=== PATIENT | male | born 1975 | race Caucasian/White ===

== ENCOUNTER 2017-10-31 06:34 | Emergency (ER) | payer OTHER, SELFPAY ==
--- NOTE | 2017-10-31 06:34 | DT_ITS ---
This patient was seen during an EMR downtime October 31, 2017 - November 07, 2017. This patient may have a combination of paper and electronic documentation or all paper documentation. All documentation is viewable within the e-chart portion of [employer] for each patient visit.
== END 2017-10-31 07:03 | disposition home or self-care (01) ==
LOC: ED 11-02 11:04
PROVIDERS: Emergency Provider Emergency Medicine; Family Provider Family Medicine; PCP Family Medicine
DX: N45.1 Epididymitis (principal); E66.9 Obesity, unspecified; Z72.0 Tobacco use
CPT/HCPCS: 99282

== ENCOUNTER → 2019-07-25 10:06 | Outpatient (CLI) | payer OTHER, SELFPAY ==
[2019-01-20 14:08] VITALS: BMI 45.8
--- NOTE | 2019-07-25 10:15 | RAD_ITS ---
STUDY: X-RAY CHEST REASON FOR EXAM: Male, 44 years old. chest pressure, tightness for almost a week TECHNIQUE: PA and lateral views of the chest. COMPARISON: Prior study of July 05, 2016 FINDINGS: The lungs are clear and expanded. There is no demonstrated pleural abnormality. Normal size heart. Normal mediastinum and art. Normal visualized pulmonary arteries. Normal visualized aortic arch and descending thoracic aorta. Normal visualized thoracic spine. Normal visualized ribs, clavicles, and shoulders. There is no demonstrated abnormality of the visualized soft tissue structures of the upper abdomen. RAD/Chest PA and Lateral IMPRESSION: Normal x-ray examination of the chest. There has been interval resolution of left basilar atelectasis seen on the previous study. Electronically Signed: Srinivasa Sinclair MD at 17:06 EST , Service support ,
== END ==
PROVIDERS: PCP Family Medicine; Referring Provider Family Medicine; Visit Provider Family Medicine
DX: R05 Cough (principal)
CPT/HCPCS: 71046

== ENCOUNTER → 2020-03-28 | Outpatient (CLI) | payer OTHER, SELFPAY ==
[2019-01-20 14:08] VITALS: BMI 45.8
== END | disposition home or self-care (01) ==
PROVIDERS: PCP Family Medicine; Referring Provider Family Medicine; Visit Provider Family Medicine
DX: Z20.828 Contact with and (suspected) exposure to other viral communicable diseases (principal)
CPT/HCPCS: 87635; U0003

== ENCOUNTER → 2020-04-03 14:44 | Outpatient (CLI) | payer OTHER, SELFPAY ==
[2019-01-20 14:08] VITALS: BMI 45.8
--- NOTE | 2020-04-03 15:09 | RAD_ITS ---
STUDY: X-RAY CHEST REASON FOR EXAM: Male, 44 years old. RECENT DIAGNOSIS OF PNEUMONIA PER PATIENT. NOT GETTING ANY BETTER. SOB AND COUGH. TECHNIQUE: PA and lateral views of the chest. COMPARISON: Comparison is made with prior study dated 07/25/2019. FINDINGS: The lungs are clear and expanded. There is no demonstrated pleural abnormality. Normal size heart. Normal mediastinum and art. Normal visualized pulmonary arteries. Normal visualized aortic arch and descending thoracic aorta. Normal visualized thoracic spine. Normal visualized ribs, clavicles, and shoulders. There is no demonstrated abnormality of the visualized soft tissue structures of the upper abdomen. RAD/Chest PA and Lateral IMPRESSION: Normal x-ray examination of the chest. Electronically Signed: Scot Santiago, at 15:33 EST , Service support ,
== END ==
PROVIDERS: PCP Family Medicine; Referring Provider Family Medicine; Visit Provider Family Medicine
DX: R06.02 Shortness of breath (principal)
CPT/HCPCS: 71046

== ENCOUNTER → 2020-05-01 16:25 | Outpatient (CLI) | payer OTHER, SELFPAY ==
[2019-01-20 14:08] VITALS: BMI 45.8
== END ==
PROVIDERS: PCP Family Medicine; Referring Provider Family Medicine; Visit Provider Family Medicine
DX: U07.1 COVID-19 (principal)
CPT/HCPCS: 87635; U0003

== ENCOUNTER 2020-05-06 23:32 | Inpatient (IN) | payer OTHER, SELFPAY ==
[2019-01-20 14:08] VITALS: BMI 45.8
[2020-05-06 23:33] VITALS: BP 117/81; PULSE 128; RESP 20; TEMP 37.2; O2SAT 96; BMI 45.8
--- NOTE | 2020-05-06 23:58 | EKG12_ITS ---
Test Reason : DYSRHYTHMIA Blood Pressure : / mmHG Vent. Rate : 112 BPM Atrial Rate : 112 BPM P-R Int : 152 ms QRS Dur : 098 ms QT Int : 338 ms P-R-T Axes : 048 031 031 degrees QTc Int : 461 ms Sinus tachycardia Otherwise normal ECG Confirmed by NAYELI DE LA TORRE, GARY ([id number]), editor producer FITO SANCHEZ ([id number]) on 05/09/2020 8:52:40 A M Referred By: XENIA Confirmed By:JEANIE TYLER MD
--- NOTE | 2020-05-06 23:59 | ED.DCSUM_ITS ---
History of Present Illness Chief Complaint: Shortness of Breath Informant: Patient Narrative: Stated he has been having shortness of breath since yesterday. Worse this evening. Was just noticed that he is dyspneic. He was diagnosed with coronavirus 5 days ago and started having symptoms 7 days ago. Patient stated his coronavirus symptoms have been headache and intermittent fevers weakness muscle aches nausea vomiting and diarrhea. Denies any chronic lung problems. No other pulmonary embolism risk factors. Denies any cardiac problems. Denies any chest pain. He has never had this before. He has not smoked cigarettes in 10 years but did smoke for about 13 years remotely. Denies any history of COPD. No home treatment other than [id number] treatment for his coronavirus Past Medical History - Allergies and Home Meds Allergies/Adverse Reactions: Allergies No Known Allergies Allergy (Verified 05/06/20 23:33) Primary Care Physician: Zac Byrd MD [Primary Care Provider] - Prior records reviewed: Yes Past Medical History: - - Acute bronchitis Surgical History: - - Reviewed Lives: With Family Smoking Status: Former smoker Alcohol: None Drugs: None Review of Systems General: Reports: Fever, Malaise. Denies: Chills, Sweats Eyes: Denies: Visual changes - bilaterally, Diplopia ENT: Reports: Sore throat. Denies: Rhinorrhea Cardiovascular: Denies: Chest pain, Palpitations Respiratory: Reports: Dyspnea, Cough, Dyspnea on exertion Gastrointestinal: Reports: Nausea, Vomiting, Diarrhea. Denies: Abdominal pain, Melena, Hematochezia Genitourinary: Denies: Dysuria, Hematuria, Frequency Musculoskeletal: Reports: Myalgias. Denies: Back pain, Extremity Pain Skin: Denies: Rash, Wounds Neurological: Reports: Weakness. Denies: Headache, Numbness Physical Exam Vital Signs/Narrative: Vital Signs Temp Pulse Resp BP Pulse Ox 05/06/20 23:33 98.9 F 128 H 20 H 117/81 H 96 General: Well nourished, Well developed, No Acute Distress Head: Normocephalic, Atraumatic Eyes: Perrl, EOMI ENT: Moist mucous membranes, No rhinorrhea Neck: Supple, Nontender Cardiovascular: Regular rhythm, No murmurs, Tachycardia Respiratory: No distress, CTA bilaterally, Chest nontender Abdomen: Soft, Nontender, Nondistended, Normal bowel sounds Back: Nontender, Normal Inspection Extremities: Nontender, No edema Skin: Normal color, No rash Neurological: Alert, Oriented x3, Cranial nerves II-XII grossly intact, Normal Strength, Normal Sensation Psychological: Normal affect, Normal Mood Diagnostic/Tx/Re-eval - Medical Decision Making Patient given a breathing treatment. Lab work and EKG obtained as well as chest x-ray. Lab work shows no leukocytosis. Electrolytes unremarkable. Troponin negative. EKG shows sinus tachycardia at a rate of 112. Patient did feel better after breathing treatment. However he did drop his pulse ox to 86% while resting. He remains mildly tachypneic and tachycardic. Chest x-ray shows my interpretation Covid pneumonitis. Patient given Decadron. I do not think he needs antibiotics. Supplemental oxygen is making him feel better. Discussed with the hospitalist and he will be admitted. I feel he is too symptomatic to be discharged ED Disposition - Plan for ED Patient: Disposition: Acute Care [facility] Diagnosis: Coronavirus infection, Respiratory failure
[2020-05-07] VITALS (10 sets, daily range): BP systolic 122–141; BP diastolic 72–87; PULSE 83–118; RESP 18–28; TEMP 36–37.1; O2SAT 88–100; BMI 44.6
--- NOTE | 2020-05-07 | RAD_ITS ---
STUDY: X-RAY CHEST REASON FOR EXAM: Male, 44 years old. PT STATES INCREASED SOB. DIAGNOSED WITH COVID ON TUESDAY TECHNIQUE: Single AP portable view of the chest. COMPARISON: None. FINDINGS: Ill-defined subpleural groundglass opacities are seen more prominent in the lung bases , may represent atypical pneumonia or viral pneumonia (COVID-19 ). There is no demonstrated pleural abnormality. Normal size heart. Normal mediastinum and art. Normal visualized pulmonary arteries. Normal visualized aortic arch and descending thoracic aorta. Normal visualized thoracic spine. Normal visualized ribs, clavicles, and shoulders. There is no demonstrated abnormality of the visualized soft tissue structures of the upper abdomen. RAD/Chest 1 View (Portable) IMPRESSION: Ill-defined subpleural groundglass opacities are seen more prominent in the lung bases , may represent atypical pneumonia or viral pneumonia (COVID-19 ). Electronically Signed: Portillo Reddy, at 0:55 EST Tel , Service support ,
[2020-05-07] MEDS: Ipratropium/Albuterol Sulfate 3 ML AMPUL.NEB INHALATION (00:09)
[2020-05-07 00:49] LABS: Absolute Lymphocyte Count 1.06 X10^3/uL (0.83-4.51); Absolute Neutrophil Count 4.9 X10^3/uL (2.0-7.7); Basophil# 0.02 X10^3/uL; Basophil% 0.3 % (0-1); Hematocrit 46.4 % (40-54); Lymphocyte # 1.06 X10^3/ul (4.0); Lymphocyte % 16.5 % (19-41); Mean Corp Hgb Conc 32.3 g/dL (32-36); Mean Corpuscular Hgb 27.4 pg (27.0-32.0); Mean Corpuscular Volume 84.7 fL (80-94); Mean Platelet Vol. 10.1 fl (6.2-12.0); Monocyte# 0.44 X10^3/uL; Monocyte% 6.8 % (0-10); NRBC Flagged by Analyzer 0 % (0-5); Neutrophil # 4.88 X10^3/uL (2.7-7.7); Neutrophil % 75.8 % (47-70); Platelet Count 240 K/mm3 (150-450); RBC Distribution Width CV 13.9 % (11.6-14.6); RBC Distribution Width SD 42.8 fl (35.1-43.9); Red Blood Count 5.48 M/mm3 (4.6-6.2); White Blood Count 6.4 K/mm3 (4.4-11.0)
[2020-05-07 01:05] LABS: Anion Gap 7 (5-15); BUN 11 mg/dL (7-18); BUN/Creat Ratio 14.2 RATIO (10-20); Calcium,Total 8.3 mg/dL (8.5-10.1); Chloride 103 mmol/L (98-107); Creatinine, Serum 0.77 mg/dL (0.70-1.30); EST Glomerular Filtration Rate 116 mL/min (>60); Est Glom Filt Rate - Afr Amer 141 mL/min (>60); Glucose 108 mg/dL (74-106); Potassium 3.9 mmol/L (3.5-5.1); Sodium Level 137 mmol/L (136-145)
--- NOTE | 2020-05-07 01:25 | PCM.HP.STD ---
Problem List (1) SARS (severe acute respiratory syndrome) Status: Acute (2) Coronavirus infection Status: Acute (3) Respiratory failure Status: Inactive (4) Respiratory failure Status: Inactive (5) Acute bacterial conjunctivitis Status: Inactive Qualifiers: Laterality: left Qualified Code(s): H10.32 - Unspecified acute conjunctivitis, left eye History of Present Illness Date of Admission: 05/07/20 Chief Complaint: SOB The patient is a 44 year old M with a significant history of morbid obesity who presents emergency department with 4-day history of progressively worsening shortness of breath. Associated with his symptoms is fever. He reported home temperature of 101 Fahrenheit to 105 Fahrenheit. Further he has chills, rigors, fatigue, weakness, and headaches. Also he has nausea and vomiting. He has lost his taste and smell sensation. He was tested for Covid April. His test returned positive on April. Past Medical History Medical History: Medical History (Last Reviewed 05/07/20 @ 04:[address] Shyam Euceda MD) Chest pain R07.9 Knee pain M25.569 Chronic neck and back pain M54.2, M54.9, G89.29 Allergies No Known Allergies Allergy (Verified 05/06/20 23:33) Home Medications: Ambulatory Orders Medication Instructions Recorded NK 05/06/20 Surgical History: Surgical History (Last Reviewed 01/20/19 @ 13:48 by Janessa Wilson) History of shoulder surgery Z98.890 History of skin graft Z94.5 Surgical History: - - Reviewed Lives: With Family Smoking Status: Current every day smoker Tobacco Use: Chew Alcohol: None Drugs: None - *Family History Maternal History Items: Cancer, Heart Disease Paternal History Items: Heart Disease Review of Systems Constitutional: Reports: Anorexia, Chills, Fever, Malaise, Weakness, Fatigue. Denies: Weight Change HEENT: Reports: Head Aches. Denies: Sinus Congestion, Sinus Drainage Cardiovascular: Denies: Chest Pain, Palpitations Respiratory: Reports: Cough, Shortness of Breath, Sputum production Gastrointestinal: Reports: Abdominal Pain, Nausea, Vomiting Genitourinary: Denies: Dysuria Musculoskeletal: Denies: Joint Pain, Joint Tenderness Skin: Denies: Rash, Wounds Neurological: Denies: Numbness, Tingling, Focal weakness Psychiatric: Denies: Anxiety, Depression, Homicidal Ideations, Suicidal Ideations Hematologic/ Lymphatic: Denies: Easy Bruising, Easy Bleeding VTE Information - Inpt Only VTE Present on Admission: No VTE Mechan Device Prophylaxis: SCD's VTE Pharm Prophylaxis ordered?: Yes Patient Problems: Active and Suspected Problems (Last Updated 01/20/19 @ 13:48 by Janessa Wilson) Coronavirus infection (Acute) SARS (severe acute respiratory syndrome) (Acute) - Physical Exam Vitals/I&O's: Vital Signs Temp Pulse Resp BP Pulse Ox 96.8 F L 118 H 25 H 125/84 H 89 05/07/20 00:28 05/07/20 00:28 05/07/20 00:28 05/07/20 00:28 05/07/20 00:28 Oxygen Flow Rate (L/min) 4 Oxygen Delivery Method Room Air Weight: 140.614 kg Body Mass Index (BMI) 45.8 General: Alert, Oriented x3, Cooperative HEENT: Atraumatic, PERRLA, EOMI, Normocephalic Neck: Supple, No JVD, Negative Carotid Bruits Lungs: Rales - Mild, Tachypneic Cardiovascular: Normal S1, Normal S2, Tachycardic Abdomen: Bowel Sounds Present, Soft, Non Tender, Obese Extremities: No edema, Capillary Refill Less than 3 Seconds Skin: No rashes, No breakdown Musculoskeletal: No Tenderness to Palpation of Joints or Extremities Neurological: Cranial nerves II-XII grossly intact Psych/Mental Status: Normal Affect, Appropriate Laboratory Results 05/07/20 00:20: WBC 6.4, RBC 5.48, Hgb 15.0, Hct 46.4, MCV 84.7, MCH 27.4, MCHC 32.3, RDW Std Deviation 42.8, RDW Coeff of Jaiden 13.9, Plt Count 240, MPV 10.1, Immature Gran % (Auto) 0.600, Neut % (Auto) 75.8 H, Lymph % (Auto) 16.5 L, [place] % (Auto) 6.8, Eos % (Auto) 0.0, Baso % (Auto) 0.3, Absolute Neuts (auto) 4.9, Absolute Lymphs (auto) 1.06, Nucleated RBC % 0 05/07/20 00:20: Sodium 137, Potassium 3.9, Chloride 103, Carbon Dioxide 27.0, Anion Gap 7, BUN 11, Creatinine 0.77, Estim Creat Clear Calc 123.70, Est GFR (MDRD) Af Amer 141, Est GFR (MDRD) Non-Af 116, BUN/Creatinine Ratio 14.2, Glucose 108 H, Calcium 8.3 L, Troponin I < 0.015 Current Medications Dexamethasone Sodium Phosphate (Dexamethasone 10 Mg/Ml Vial) 6 mg IV X1 ONE Stop: 05/07/20 01:31 Assessment/Plan All Active Problems (Last Updated 01/20/19 @ 13:48 by Janessa Wilson) Coronavirus infection (Acute) SARS (severe acute respiratory syndrome) (Acute) Acute hypoxemic respiratory insufficiency secondary to SARS COVID-19 infection. Patient with oxygen saturation of 88% on room air. Require supplemental oxygenation emergency department. Oxygen by nasal cannula per protocol Impression of chest x-ray by radiologist: Ill-defined subpleural groundglass opacities are seen more prominent in the lung bases, representing atypical pneumonia or viral COVID-19. Chest x-ray was independently interpreted. I agree with the latest interpretation. D-dimer and procalcitonin ordered. 6 mg IV given at emergency department. Decadron 6 mg p.o. daily ordered. Liver enzymes and kidney function is normal. Will start patient on remdesivir. Proair as needed ordered. Tylenol for fever and Mucinex for cough ordered. Zofran for nausea and vomiting. Elevated D-dimer Will get CTPA. Subcutaneous Lovenox Per Covid protocol ordered. Tobacco abuse Patient chews tobacco and occasionally smokes Counseled Morbid obesity BMI 45.8. Complicates care. Recommend lifestyle modification. DVT prophylaxis Subcutaneous Lovenox. Inpatient E&M: [id number] Init Hosp L3
[2020-05-07] MEDS: dexAMETHasone 10 MG/ML Vial 6 MG IV (01:41)
[2020-05-07 03:05] LABS: D-Dimer Quantitative (DVT/PE) 1.25 FEU/ug/m (0.27-0.49)
--- NOTE | 2020-05-07 03:44 | CT_ITS ---
STUDY: CTA CHEST REASON FOR EXAM: Male, 44 years old. SOB,ELEVATED DDIMER,+ COVID ON TUESDAY,WEAKNESS,FEVER,HEADACHE -- HX:HLD,GERD RADIATION DOSAGE (If Supplied By Facility): CTDIvol = ( 17.42 ) mGy, DLP = ( 541.73 ) mGycm TECHNIQUE: The examination was performed with the intravenous administration of IV 100mL Isovue-370. Post-processing of the angiographic images was performed, with multiplanar reformation and 3D reconstruction. Individualized dose optimization techniques were used for this CT. COMPARISON: None. FINDINGS: Normal enhancement of the main pulmonary artery and right and left pulmonary arteries. Normal enhancement of the bilateral peripheral pulmonary arteries. There is no demonstrated pulmonary embolism. Normal thoracic aorta and visualized great vessels. There is no demonstrated aortic dissection. Normal heart and pericardium. There are moderately enlarged mediastinal and hilar lymph nodes, which are suggestive of infectious process. Normal visualized trachea and bronchi. The lungs are well expanded. Ill-defined subpleural groundglass opacities are seen more prominent in the lung bases , may represent atypical pneumonia or viral pneumonia (COVID-19 ). Normal pleura. Normal chest wall structures. Normal osseous structures. Normal visualized upper abdomen. CT/CTA Chest W/WO Contrast IMPRESSION: No demonstrated pulmonary embolism or arterial dissection. Ill-defined subpleural groundglass opacities are seen more prominent in the lung bases , may represent atypical pneumonia or viral pneumonia (COVID-19 ). Electronically Signed: Portillo Reddy, at 5:13 EST Tel , Service support ,
[2020-05-07] MEDS: 0.9% Saline Lock 10 ML Syringe IV (04:02)
[2020-05-07] MEDS: 0.9% Normal Saline 1,000 ML 100 ML IV (04:02)
--- NOTE | 2020-05-07 07:19 | PCS.PANDOC ---
PANDEMIC DOCUMENTATION INITIATED: Date: Time: 05/07/20 0217
[2020-05-07 08:50] LABS: Procalcitonin < 0.04 ng/mL (0.00-0.09)
[2020-05-07] MEDS: Enoxaparin 40 MG/0.4 ML Syringe SC ×2 (09:31→22:02)
[2020-05-07] MEDS: dexAMETHasone 4 MG Tablet 6 MG PO (09:31)
--- NOTE | 2020-05-07 10:45 | CASEMGMT ---
ASHLEY MORALES ASSESSMENT COVID-19 +. In isolation precautions. ASHLEY MORALES placed call to pt's room for initial transition planning/care coordination assessment. ASHLEY MORALES introduced self and role at [facility]. Pt voices understanding and consents to assessment at this time. Pt is A/O at this time and answers all questions appropriately. Care providers, pharmacy, and demographics verified/updated at this time. Had COVID testing completed @ Dr Byrd's office. Pt able to quarantine in his home, stating he has been even prior to admission. He has been staying in separate bedroom and using separate bathroom. Has masks, illuminating engineer, and disinfectants. PCP: Dr Byrd Specialists: none Preferred Pharmacy: [facility] Retail Insurance: MMO Prescription Benefit: Yes Living Will/HPOA: Pt thinks he has completed both but is not sure. LNOK: , Swetha Living Arrangements: Lives w/his and 3 kids. Independent. Transportation: Pt states drives self and states no transportation concerns at this time. will take him home @ discharge. DME: Denies using any DME and denies needs. No Home O2. Denies preference of DME co if requires O2 @ discharge. HHC/SNF: No history of either. No needs identified. Pt wishes to return home and states has no concerns with going home at time of discharge. CM to follow for home oxygen needs and any further discharge planning/needs. Pt voices no concerns/needs at this time. Advised pt to ask for CM if any questions/concerns/needs arise. Voices understanding. PLAN: Home Follow for any Home O2 needs @ discharge. Follow for anti-coag @ d/c. Lucita RODAS RN, CM
[2020-05-07 14:39] LABS: AST(SGOT) 82 U/L (15-37); Alanine Aminotransfer ALT/SGPT 80 U/L (16-61); Albumin, Serum 3.2 g/dL (3.2-5.0); Alkaline Phosphatase 56 U/L (45-117); Bilirubin, Direct 0.12 mg/dL (0.00-0.30); Globulin 4.2 g/dL (2.2-4.2); Protein, Total 7.4 g/dL (6.4-8.2)
--- NOTE | 2020-05-07 16:40 | PCM.HP.ID ---
Problem List (1) Coronavirus infection Status: Acute Reason for Consult: covid Consulted by: Dr. Rodriguez History of Present Illness: The patient is a 44 year old M presented with one week of cough, SOB, aches, change in taste and smell, not feeling well. Primary complaint is cough. also sick with covid. Came to ED, started on dex, remdesivir, lovenox 40mg bid. On RA today. Feeling better but still coughing. Full ROS performed and neg except as noted above. - Medical History Surgical History: reviewed Allergies/Adverse Reactions: Allergies No Known Allergies Allergy (Verified 05/07/20 02:25) Home Medications: Ambulatory Orders Medication Instructions Recorded NK 05/06/20 - Social History SMOKING STATUS:: Former smoker Vital Signs Temp Pulse Resp BP Pulse Ox 98.0 F 88 20 H 129/74 H 94 05/07/20 13:43 05/07/20 13:43 05/07/20 13:43 05/07/20 13:43 05/07/20 13:43 Oxygen Flow Rate (L/min) 2 Oxygen Delivery Method Room Air Weight: 136.985 kg Body Mass Index (BMI) 44.6 Laboratory Tests Past 24 Hrs 05/07/20 05/07/20 05/07/20 00:20 00:20 00:20 WBC 6.4 RBC 5.48 Hgb 15.0 Hct 46.4 MCV 84.7 MCH 27.4 MCHC 32.3 RDW Std Deviation 42.8 RDW Coeff of Jaiden 13.9 Plt Count 240 MPV 10.1 Immature Gran % (Auto) 0.600 Neut % (Auto) 75.8 H Lymph % (Auto) 16.5 L Turner % (Auto) 6.8 Eos % (Auto) 0.0 Baso % (Auto) 0.3 Absolute Neuts (auto) 4.9 Absolute Lymphs (auto) 1.06 Nucleated RBC % 0 D-Dimer Quant (PE/DVT) Sodium 137 Potassium 3.9 Chloride 103 Carbon Dioxide 27.0 Anion Gap 7 BUN 11 Creatinine 0.77 Estim Creat Clear Calc 123.70 Est GFR (MDRD) Af Amer 141 Est GFR (MDRD) Non-Af 116 BUN/Creatinine Ratio 14.2 Glucose 108 H Calcium 8.3 L Total Bilirubin 0.40 Direct Bilirubin 0.12 AST 82 H ALT 80 H Alkaline Phosphatase 56 Troponin I < 0.015 Total Protein 7.4 Albumin 3.2 Globulin 4.2 Procalcitonin 05/07/20 05/07/20 01:20 05:38 WBC RBC Hgb Hct MCV MCH MCHC RDW Std Deviation RDW Coeff of Jaiden Plt Count MPV Immature Gran % (Auto) Neut % (Auto) Lymph % (Auto) Turner % (Auto) Eos % (Auto) Baso % (Auto) Absolute Neuts (auto) Absolute Lymphs (auto) Nucleated RBC % D-Dimer Quant (PE/DVT) 1.25 H* Sodium Potassium Chloride Carbon Dioxide Anion Gap BUN Creatinine Estim Creat Clear Calc Est GFR (MDRD) Af Amer Est GFR (MDRD) Non-Af BUN/Creatinine Ratio Glucose Calcium Total Bilirubin Direct Bilirubin AST ALT Alkaline Phosphatase Troponin I Total Protein Albumin Globulin Procalcitonin < 0.04 - Other Studies Radiology: [] reviewed Other Studies: [] Route of nutrition/ use of supplements: [] Nutritional Intake: [] IV Site: [] Kumari Catheter: [] - Physical Exam General: Alert, Oriented x3, Cooperative HEENT: Atraumatic, PERRLA, EOMI Neck: Supple, No Nodes Lungs: Diminished Cardiovascular: Regular rate, Regular Rhythm Abdomen: Soft, Non Tender, Non-Distended Extremities: No edema Skin: No rashes IV Site: Peripheral, without redness Musculoskeletal: No Tenderness to Palpation of Joints or Extremities - Assessment/Plan Antibiotics: [] Assessment/Plan: [] Active and Suspected Problems (Last Reviewed 05/07/20 @ 04:[address] Shyam Euceda MD) Coronavirus infection (Acute) SARS (severe acute respiratory syndrome) (Acute) covid with hypoxia - on dex, lovenox 40mg bid, remdesivir. Will give stop date for dex, order daily cmp and cbc while on remdesivir. CT neg for PE, d-dimer was 1.2. No LFT done despite being on remdesivir, ordered set for now, ALT mildly elevated at 80. Will follow, thank you.
[2020-05-08] MEDS: MELATONIN 3 MG TABLET PO (00:42)
[2020-05-08 04:24] VITALS: BP 137/81; PULSE 70; RESP 18; TEMP 36.6; O2SAT 93
[2020-05-08 07:49] LABS: Hematocrit 45.1 % (40-54); Hemoglobin 14.5 g/dL (13.0-16.5); Mean Corp Hgb Conc 32.2 g/dL (32-36); Mean Corpuscular Hgb 27.5 pg (27.0-32.0); Mean Corpuscular Volume 85.4 fL (80-94); Mean Platelet Vol. 11.4 fl (6.2-12.0); Platelet Count 235 K/mm3 (150-450); RBC Distribution Width CV 14.3 % (11.6-14.6); RBC Distribution Width SD 44.1 fl (35.1-43.9); Red Blood Count 5.28 M/mm3 (4.6-6.2); White Blood Count 9.8 K/mm3 (4.4-11.0)
--- NOTE | 2020-05-08 07:54 | PCM.PROGNOTE ---
Patient Problems: Active and Suspected Problems (Last Reviewed 05/07/20 @ 04:[address] Shyam Euceda MD) Coronavirus infection (Acute) SARS (severe acute respiratory syndrome) (Acute) Subjective: Chief complaint: Follow-up after admission for acute COVID-19 pneumonia and acute hypoxic respite insufficiency Patient seen and examined. No acute events overnight. He is still complaining of weakness and fatigue, shortness of breath upon ambulation. Currently, he is on room air at rest. Shortness of breath started to improve. Still having mild cough. He denies fever or chills. Vital signs are stable. - Physical Exam Vitals/I&O's: Vital Signs Temp Pulse Resp BP Pulse Ox 97.8 F 70 18 137/81 H 93 05/08/20 04:24 05/08/20 04:24 05/08/20 04:24 05/08/20 04:24 05/08/20 04:24 Oxygen Flow Rate (L/min) 2 Oxygen Delivery Method Room Air Weight: 302 lb 0.003 oz Body Mass Index (BMI) 44.6 Intake and Output for Last 24 Hours 05/06/20 05/07/20 05/08/20 23:59 23:59 23:59 Intake Total 2281.67 / 2281.67 730 / 730 Balance 2281.67 / 2281.67 730 / 730 General: Alert, Oriented x3, Cooperative, No apparent distress HEENT: Atraumatic, PERRLA, EOMI, Normocephalic Oral: Moist Mucosa, No Gingival or Mucosal Lesions/ Ulcerations Neck: Supple, No JVD, Negative Carotid Bruits, Trachea Midline, Thyroid Normal Size and Texture Lungs: Clear to auscultation, Normal air movement, No rhonchi, No wheeze, No rales, Diminished Cardiovascular: Regular rate, Regular Rhythm, Normal S1, Normal S2, PMI Normal Abdomen: Bowel Sounds Present, Soft, Non Tender, Non-Distended, No Hepato-splenomegaly, Obese Extremities: No clubbing, No cyanosis, No edema Skin: No rashes, No breakdown Lymphatic: No Cervical, Supraclavicular, or Inguinal Adenopathy Neurological: Cranial nerves II-XII grossly intact, Motor Exam 5/5 strength throughout Psych/Mental Status: Normal Affect, Appropriate, Alert and oriented to time, place, person, mood and affect Laboratory Results 05/07/20 00:20: Total Bilirubin 0.40, Direct Bilirubin 0.12, AST 82 H, ALT 80 H, Alkaline Phosphatase 56, Total Protein 7.4, Albumin 3.2, Globulin 4.2 05/07/20 05:38: Procalcitonin < 0.04 05/08/20 06:50: WBC 9.8, RBC 5.28, Hgb 14.5, Hct 45.1, MCV 85.4, MCH 27.5, MCHC 32.2, RDW Std Deviation 44.1 H, RDW Coeff of Jaiden 14.3, Plt Count 235, MPV 11.4 05/08/20 06:50: Sodium Pending, Potassium Pending, Chloride Pending, Carbon Dioxide Pending, Anion Gap Pending, BUN Pending, Creatinine Pending, Est GFR (MDRD) Af Amer Pending, Est GFR (MDRD) Non-Af Pending, BUN/Creatinine Ratio Pending, Glucose Pending, Calcium Pending, Total Bilirubin Pending, AST Pending, ALT Pending, Alkaline Phosphatase Pending, Total Protein Pending, Albumin Pending Clinical Impression(s) from Imaging Studies Chest X-Ray 05/07/20 00:00 IMPRESSION: Ill-defined subpleural groundglass opacities are seen more prominent in the lung bases , may represent atypical pneumonia or viral pneumonia (COVID-19 ). Electronically Signed: Portillo Reddy, at 0:55 EST Tel , Service support , Chest CTA 05/07/20 03:44 IMPRESSION: No demonstrated pulmonary embolism or arterial dissection. Ill-defined subpleural groundglass opacities are seen more prominent in the lung bases , may represent atypical pneumonia or viral pneumonia (COVID-19 ). Electronically Signed: Portillo Reddy at 5:13 EST Tel , Service support , Current Medications Acetaminophen (Acetaminophen 325 Mg Tablet) 650 mg PO Q6H PRN PRN PRN Reason: Pain Score 1-10/Temp > 100.7 F Albuterol Sulfate (Albuterol Ih 8.5 Gm (Proair) Inhaler (200 Puffs)) 2 puff INHALATION Q4H PRN PRN PRN Reason: SOB/WHEEZING Dexamethasone (Dexamethasone 4 Mg Tablet) 6 mg PO DAILY COUNTS INCLUDE 234 BEDS AT THE [facility] Stop: 05/14/20 10:01 Last Admin: 05/07/20 09:56 Dose: Not Given Documented by: Enoxaparin Sodium (Enoxaparin 40 Mg/0.4 Ml Syringe) 40 mg SC BID COUNTS INCLUDE 234 BEDS AT THE [facility] Last Admin: 05/07/20 22:02 Dose: 40 mg Documented by: Remdesivir 100 mg/ Sodium (Chloride) 250 mls @ 125 mls/hr IV Q24H [facility] Stop: 05/10/20 23:59 Last Infusion: 05/08/20 00:02 Dose: Infused Documented by: Sodium Chloride () 250 mls @ 15 mls/hr IV .[id number] PRN PRN Reason: Saline Flush Sodium Chloride () 250 mls @ 15 mls/hr IV .[id number] PRN PRN Reason: Additional IVPB Infusion Melatonin (Melatonin 3 Mg Tablet) 3 mg PO QHS PRN PRN PRN Reason: INSOMNIA Last Admin: 05/08/20 00:42 Dose: 3 mg Documented by: Ondansetron HCl (Ondansetron 4 Mg/2 Ml Vial) 4 mg IV Q8H PRN PRN PRN Reason: NAUSEA/VOMITING Sodium Chloride (0.9% Saline Lock 10 Ml Syringe) 10 - 40 ml IV UD PRN PRN Reason: SALINE FLUSH Last Admin: 05/07/20 04:02 Dose: 10 ml Documented by: Medical Necessity - Tobacco Use Smoking Status: Former smoker Tobacco Use: Chew Assessment/Plan All Active Problems (Last Reviewed 05/07/20 @ 04:[address] Shyam Euceda MD) Coronavirus infection (Acute) SARS (severe acute respiratory syndrome) (Acute) This is a 44 years old male patient presented to the emergency room because of shortness of breath, tested positive for COVID-19 and he was found to have bilateral basilar groundglass opacities consistent with COVID-19 pneumonia complicated by acute hypoxic respiratory insufficiency. #1 acute bilateral COVID-19 pneumonia: He is on IV Decadron and remdesivir. Yesterday, he was on oxygen at 2 to 3 L, today, is off oxygen. He still complaining of exertional shortness of breath, fatigue and weakness. He has been afebrile, other vital signs are stable. Routine blood work was unremarkable. Liver transaminases were minimally elevated, trending down. D-dimer was elevated. CTA chest reviewed, no PE. Infectious disease on the case. Plan to continue same treatment. #2 acute hypoxic respiratory sufficiency: Secondary to #1. Currently, he is on room air but complaining of exertional shortness of breath. He has been afebrile. Plan to monitor. #3 DVT prophylaxis: Subcu Lovenox twice daily. This note was generated with [employer] dictation software. It may contain incorrect words, spelling, and punctuation that were not noted in checking the note before signing. Inpatient E&M: [id number] Subs Hosp L2
[2020-05-08 08:13] LABS: ALB/GLOB Ratio 0.9 RATIO (0.9-2.4); AST(SGOT) 54 U/L (15-37); Alanine Aminotransfer ALT/SGPT 77 U/L (16-61); Alkaline Phosphatase 55 U/L (45-117); Anion Gap 5 (5-15); BUN 13 mg/dL (7-18); BUN/Creat Ratio 22.1 RATIO (10-20); Calcium,Total 8.4 mg/dL (8.5-10.1); Chloride 108 mmol/L (98-107); Creatinine, Serum 0.59 mg/dL (0.70-1.30); EST Glomerular Filtration Rate 159 mL/min (>60); Est Glom Filt Rate - Afr Amer 192 mL/min (>60); Estimated Creatinine Clearance 161.44 ml/min; Globulin 3.5 g/dL (2.2-4.2); Glucose 110 mg/dL (74-106); Potassium 4.6 mmol/L (3.5-5.1); Protein, Total 6.5 g/dL (6.4-8.2); Sodium Level 141 mmol/L (136-145)
[2020-05-08 09:15] VITALS: BP 120/64; PULSE 86; RESP 18; TEMP 36.6; O2SAT 92
[2020-05-08] MEDS: 0.9% Saline Lock 10 ML Syringe IV ×2 (09:21→22:31)
[2020-05-08] MEDS: Enoxaparin 40 MG/0.4 ML Syringe SC ×2 (09:21→22:31)
[2020-05-08] MEDS: dexAMETHasone 4 MG Tablet 6 MG PO (09:21)
--- NOTE | 2020-05-08 11:18 | PCM.PN.ID ---
Patient Problems: Active and Suspected Problems (Last Reviewed 05/07/20 @ 04:[address] Shyam Euceda MD) Coronavirus infection (Acute) SARS (severe acute respiratory syndrome) (Acute) Subjective: Feeling better, mild dyspnea with ambulation, no fever - Physical Exam Vitals/I&O's: Vital Signs Temp Pulse Resp BP Pulse Ox 97.9 F 86 18 120/64 92 05/08/20 09:15 05/08/20 09:15 05/08/20 09:15 05/08/20 09:15 05/08/20 09:15 Oxygen Flow Rate (L/min) 2 Oxygen Delivery Method Room Air Weight: 136.985 kg Body Mass Index (BMI) 44.6 Intake and Output for Last 24 Hours 05/06/20 05/07/20 05/08/20 23:59 23:59 23:59 Intake Total 2281.67 / 2281.67 730 / 730 Balance 2281.67 / 2281.67 730 / 730 General: Alert, Cooperative, No apparent distress Lungs: Clear to auscultation, Diminished Cardiovascular: Regular rate, Regular Rhythm Abdomen: Soft, Non Tender, Non-Distended Skin: No rashes Laboratory Results 05/07/20 00:20: Total Bilirubin 0.40, Direct Bilirubin 0.12, AST 82 H, ALT 80 H, Alkaline Phosphatase 56, Total Protein 7.4, Albumin 3.2, Globulin 4.2 05/08/20 06:50: WBC 9.8, RBC 5.28, Hgb 14.5, Hct 45.1, MCV 85.4, MCH 27.5, MCHC 32.2, RDW Std Deviation 44.1 H, RDW Coeff of Jaiden 14.3, Plt Count 235, MPV 11.4 05/08/20 06:50: Sodium 141, Potassium 4.6, Chloride 108 H, Carbon Dioxide 28.0, Anion Gap 5, BUN 13, Creatinine 0.59 L, Estim Creat Clear Calc 161.44, Est GFR (MDRD) Af Amer 192, Est GFR (MDRD) Non-Af 159, BUN/Creatinine Ratio 22.1 H, Glucose 110 H, Calcium 8.4 L, Total Bilirubin 0.40, AST 54 H, ALT 77 H, Alkaline Phosphatase 55, Total Protein 6.5, Albumin 3.0 L, Globulin 3.5, Albumin/Globulin Ratio 0.9 Current Medications Acetaminophen (Acetaminophen 325 Mg Tablet) 650 mg PO Q6H PRN PRN PRN Reason: Pain Score 1-10/Temp > 100.7 F Albuterol Sulfate (Albuterol Ih 8.5 Gm (Proair) Inhaler (200 Puffs)) 2 puff INHALATION Q4H PRN PRN PRN Reason: SOB/WHEEZING Dexamethasone (Dexamethasone 4 Mg Tablet) 6 mg PO DAILY [facility] Stop: 05/14/20 10:01 Last Admin: 05/08/20 09:21 Dose: 6 mg Documented by: Enoxaparin Sodium (Enoxaparin 40 Mg/0.4 Ml Syringe) 40 mg SC BID [facility] Last Admin: 05/08/20 09:21 Dose: 40 mg Documented by: Remdesivir 100 mg/ Sodium (Chloride) 250 mls @ 125 mls/hr IV Q24H [facility] Stop: 05/10/20 23:59 Last Infusion: 05/08/20 00:02 Dose: Infused Documented by: Sodium Chloride () 250 mls @ 15 mls/hr IV .[id number] PRN PRN Reason: Saline Flush Sodium Chloride () 250 mls @ 15 mls/hr IV .[id number] PRN PRN Reason: Additional IVPB Infusion Melatonin (Melatonin 3 Mg Tablet) 3 mg PO QHS PRN PRN PRN Reason: INSOMNIA Last Admin: 05/08/20 00:42 Dose: 3 mg Documented by: Ondansetron HCl (Ondansetron 4 Mg/2 Ml Vial) 4 mg IV Q8H PRN PRN PRN Reason: NAUSEA/VOMITING Sodium Chloride (0.9% Saline Lock 10 Ml Syringe) 10 - 40 ml IV UD PRN PRN Reason: SALINE FLUSH Last Admin: 05/08/20 09:21 Dose: 10 ml Documented by: Medical Necessity - Tobacco Use Smoking Status: Former smoker Tobacco Use: Chew Route of nutrition/ use of supplements: [] Nutritional Intake: [] IV Site: [] Kumari Catheter: [] - Assessment/Plan Antibiotics: [] Assessment/Plan: [] Active and Suspected Problems (Last Reviewed 05/07/20 @ 04:[address] Shyam Euceda MD) Coronavirus infection (Acute) SARS (severe acute respiratory syndrome) (Acute) covid with hypoxia - on dex, lovenox 40mg bid, remdesivir. Will give stop date for dex, order daily cmp and cbc while on remdesivir. CT neg for PE, d-dimer was 1.2. Ok for discharge from my perspective on 10 days total of dex, 2 weeks of xarelto 10mg daily or eliquis 2.5mg bid. Will follow
[2020-05-08 15:10] VITALS: BP 115/60; PULSE 89; RESP 20; TEMP 36.8; O2SAT 94
[2020-05-08 17:00] VITALS: BP 146/98; PULSE 86; RESP 18; TEMP 37.7; O2SAT 94
[2020-05-08 22:25] VITALS: BP 132/85; PULSE 78; RESP 18; TEMP 36.8; O2SAT 96
[2020-05-09 04:25] VITALS: BP 118/81; PULSE 66; RESP 18; TEMP 36.8; O2SAT 92
[2020-05-09 06:47] LABS: Hematocrit 43.3 % (40-54); Mean Corp Hgb Conc 32.3 g/dL (32-36); Mean Corpuscular Hgb 28.1 pg (27.0-32.0); Mean Corpuscular Volume 86.8 fL (80-94); Mean Platelet Vol. 10.3 fl (6.2-12.0); Platelet Count 331 K/mm3 (150-450); RBC Distribution Width CV 14.2 % (11.6-14.6); RBC Distribution Width SD 45.1 fl (35.1-43.9); Red Blood Count 4.99 M/mm3 (4.6-6.2); White Blood Count 11.7 K/mm3 (4.4-11.0)
[2020-05-09 07:10] LABS: ALB/GLOB Ratio 0.7 RATIO (0.9-2.4); AST(SGOT) 31 U/L (15-37); Alanine Aminotransfer ALT/SGPT 63 U/L (16-61); Albumin, Serum 2.7 g/dL (3.2-5.0); Alkaline Phosphatase 48 U/L (45-117); Anion Gap 5 (5-15); BUN 15 mg/dL (7-18); BUN/Creat Ratio 26.7 RATIO (10-20); Calcium,Total 8.5 mg/dL (8.5-10.1); Chloride 110 mmol/L (98-107); Creatinine, Serum 0.56 mg/dL (0.70-1.30); EST Glomerular Filtration Rate 168 mL/min (>60); Est Glom Filt Rate - Afr Amer 203 mL/min (>60); Estimated Creatinine Clearance 170.09 ml/min; Globulin 3.8 g/dL (2.2-4.2); Glucose 102 mg/dL (74-106); Protein, Total 6.5 g/dL (6.4-8.2); Sodium Level 140 mmol/L (136-145)
[2020-05-09 08:13] VITALS: BP 120/77; PULSE 64; RESP 16; TEMP 36.8; O2SAT 94
[2020-05-09] MEDS: dexAMETHasone 4 MG Tablet 6 MG PO (08:17)
[2020-05-09] MEDS: Enoxaparin 40 MG/0.4 ML Syringe SC (08:17)
[2020-05-09 08:20] VITALS: O2SAT 92; O2SAT 94
--- NOTE | 2020-05-09 08:38 | PCM.DC ---
- Discharge Diagnoses Current Active Problems: Current Active and Chronic Problems (Last Reviewed 05/07/20 @ 04:[address] Shyam Euceda MD) Coronavirus infection (Acute) SARS (severe acute respiratory syndrome) (Acute) You will use the following diet at home:: Regular Your food should be the consistency of: Regular Discharge Activity: Return to Normal Activity Weight Bearing Status: Full weight bearing Call your doctor if you observe: Fever of 101 or Higher, Shortness of breath, Dizziness, Fainting spells, Chest pain, Increased palpitations (irregular heartbeat), Uncontrolled pain Instructions: Coronavirus Disease 2019 (COVID-19): Caring for Yourself or Others, Preventing the Spread of Infection Understanding Isolation Procedures Additional Instructions: Continue isolation precautions for 1 week more, use face mask at all times, wash your hands frequently, use a different room and bathroom at home. I would recommend using pulse oximeter to keep monitoring your oxygen levels.. Allergies/Adverse Reactions: Allergies No Known Allergies Allergy (Verified 05/07/20 02:25) Medications to take at Discharge Apixaban [Eliquis] 2.5 mg PO BID #28 tab 05/09/20 Dexamethasone [Decadron] 6 mg PO DAILY 7 Days #7 tab 05/09/20 The following prescriptions were given: Dexamethasone [Decadron] 6 mg PO DAILY 7 Days #7 tab Transmission Status: Pending to [facility] Apixaban [Eliquis] 2.5 mg PO BID #28 tab Transmission Status: Pending to [facility] Primary Care Physician: Zac Byrd MD [Primary Care Provider] - Please follow up with your Primary Care Physician in: 1 week. Test Results: Test results from this visit will be discussed in further detail at your follow-up appointment, if applicable.
--- NOTE | 2020-05-09 09:27 | CASEMGMT ---
Pt to be sent home on Eliquis at discharge for 14 days. Call to [facility] retail pharmacy and per Derek, he applied a 30 day free trial card at this time. Rod RAMIREZ CM
--- NOTE | 2020-05-09 12:21 | PHA.DC.MR ---
Pharmacy Service has performed discharge medication reconciliation for this patient. The patient's discharge medication list was reviewed for discrepancies and discrepancies were resolved. Home Medications Apixaban [Eliquis] 2.5 mg PO BID #28 tab 05/09/20 Dexamethasone [Decadron] 6 mg PO DAILY 7 Days #7 tab 05/09/20
--- NOTE | 2020-05-09 12:22 | PCM.DC.SUM ---
Discharge Date and Diagnosis - Problem List Patient Problems: Active and Suspected Problems (Last Reviewed 05/07/20 @ 04:[address] Shyam Euceda MD) Coronavirus infection (Acute) SARS (severe acute respiratory syndrome) (Acute) Date of Admission: 05/07/20 Date of Discharge: 05/09/20 - Primary Discharge Diagnosis Acute Problems: Active Problems (Last Reviewed 05/07/20 @ 04:[address] Shyam Euceda MD) #1 acute bilateral COVID-19 pneumonia. #2 acute hypoxic respiratory sufficiency. Hospital Course and Treatment Imaging Results: Clinical Impression(s) from Imaging Studies Chest X-Ray 05/07/20 00:00 IMPRESSION: Ill-defined subpleural groundglass opacities are seen more prominent in the lung bases , may represent atypical pneumonia or viral pneumonia (COVID-19 ). Electronically Signed: Nathryne Reddy, at 0:55 EST Tel , Service support , Chest CTA 05/07/20 03:44 IMPRESSION: No demonstrated pulmonary embolism or arterial dissection. Ill-defined subpleural groundglass opacities are seen more prominent in the lung bases , may represent atypical pneumonia or viral pneumonia (COVID-19 ). Electronically Signed: Portillo Reddy, at 5:13 EST Tel , Service support , Dr. Sequeira, infectious disease. Operations: None Procedures: None Summary of Care Provided: Patient seen and examined on the day of discharge and appeared to be stable to be discharged home. Breathing has been improved and he remained on room air. He denies any more fever or chills. His vital signs are stable. The patient is a 44 year old M presented to the emergency room because of shortness of breath, tested positive for COVID-19 and he was found to have bilateral basilar groundglass opacities consistent with COVID-19 pneumonia and complicated by acute hypoxic respiratory insufficiency. Patient was treated with IV Decadron and remdesivir as well as subcu Lovenox twice daily. Initially, he required oxygen of up to 2 to 3 L. D-dimer was elevated for which CTA chest done and showed no PE or dissection. Infectious disease consulted and recommended to continue Decadron 100 to severe. His liver transaminases were minimally elevated which is attributed to acute COVID-19 infection. With treatment, patient symptoms improved and he was able to come off oxygen. His respiratory status remained stable and remained in 2 L of oxygen. Patient discharged home in a stable condition, discharged on Decadron 6 mg p.o. daily to complete total of 10 days of treatment, discharged on Eliquis 2.5 mg p.o. twice daily for 2 weeks, instructed to continue COVID-19 isolation precautions for 1 week more, use facemask at all times, wash hands frequently and use different room and bathroom at home, recommended proper PCP in 1 week. Patient Problems: Active and Suspected Problems (Last Reviewed 05/07/20 @ 04:[address] Shyam Euceda MD) Coronavirus infection (Acute) SARS (severe acute respiratory syndrome) (Acute) - Physical Exam Vitals/I&O's: Vital Signs Temp Pulse Resp BP Pulse Ox 98.2 F 64 16 120/77 94 05/09/20 08:13 05/09/20 08:13 05/09/20 08:13 05/09/20 08:13 05/09/20 08:20 Oxygen Flow Rate (L/min) 2 Oxygen Delivery Method Room Air Weight: 302 lb 0.003 oz Body Mass Index (BMI) 44.6 Intake and Output for Last 24 Hours 05/07/20 05/08/20 05/09/20 23:59 23:59 23:59 Intake Total 2281.67 / 2281.67 2049 490 / 490 Balance 2281.67 / 2281.67 2049 490 / 490 General: Alert, Oriented x3, Cooperative, No apparent distress HEENT: Atraumatic, PERRLA, EOMI, Normocephalic Oral: Moist Mucosa, No Gingival or Mucosal Lesions/ Ulcerations Neck: Supple, No JVD, Negative Carotid Bruits, Trachea Midline, Thyroid Normal Size and Texture Lungs: Clear to auscultation, Normal air movement, No rhonchi, No wheeze, No rales, Diminished Cardiovascular: Regular rate, Regular Rhythm, Normal S1, Normal S2, PMI Normal Abdomen: Bowel Sounds Present, Soft, Non Tender, Non-Distended, No Hepato-splenomegaly, Obese Extremities: No clubbing, No cyanosis, No edema Skin: No rashes, No breakdown Lymphatic: No Cervical, Supraclavicular, or Inguinal Adenopathy Neurological: Cranial nerves II-XII grossly intact, Neuro grossly intact Psych/Mental Status: Normal Affect, Appropriate Laboratory Results 05/09/20 06:34: WBC 11.7 H, RBC 4.99, Hgb 14.0, Hct 43.3, MCV 86.8, MCH 28.1, MCHC 32.3, RDW Std Deviation 45.1 H, RDW Coeff of Jaiden 14.2, Plt Count 331, MPV 10.3 05/09/20 06:34: Sodium 140, Potassium 4.0, Chloride 110 H, Carbon Dioxide 25.0, Anion Gap 5, BUN 15, Creatinine 0.56 L, Estim Creat Clear Calc 170.09, Est GFR (MDRD) Af Amer 203, Est GFR (MDRD) Non-Af 168, BUN/Creatinine Ratio 26.7 H, Glucose 102, Calcium 8.5, Total Bilirubin 0.40, AST 31, ALT 63 H, Alkaline Phosphatase 48, Total Protein 6.5, Albumin 2.7 L, Globulin 3.8, Albumin/Globulin Ratio 0.7 L Discharge Activity: Return to Normal Activity Weight Bearing Status: Full weight bearing Call your doctor if you observe: Fever of 101 or Higher, Shortness of breath, Dizziness, Fainting spells, Chest pain, Increased palpitations (irregular heartbeat), Uncontrolled pain Home Medications: Medications to take at Discharge Apixaban [Eliquis] 2.5 mg PO BID #28 tab 05/09/20 Dexamethasone [Decadron] 6 mg PO DAILY 7 Days #7 tab 05/09/20 Following Prescriptions Were Given to Patient: Dexamethasone [Decadron] 6 mg PO DAILY 7 Days #7 tab Transmission Status: Received by [facility] Apixaban [Eliquis] 2.5 mg PO BID #28 tab Transmission Status: Received by [facility] Primary Care Physician: Zac Byrd MD [Primary Care Provider] - Please follow up with your Primary Care Physician in: 1 week. Patient Instructions: Coronavirus Disease 2019 (COVID-19): Caring for Yourself or Others, Preventing the Spread of Infection Understanding Isolation Procedures Disposition: Home Minutes spent on discharge:: 28 Patient Condition:: Stable Medical Necessity - Tobacco Use Smoking Status: Former smoker Tobacco Use: Chew Meaningful Use Info Meaningful Use Diagnoses (Choose all that apply): None applicable Inpatient E&M: 67836 Disch Hosp
== END 2020-05-09 11:56 | disposition home or self-care (01) | DRG 177 ==
LOC: ED 05-07 01:16 → PCU 05-07 01:27
PROVIDERS: Internal Medicine Infectious Disease; Admitting Provider Hospitalist; Emergency Provider Emergency Medicine; PCP Family Medicine; Visit Provider Hospitalist
DX: U07.1 COVID-19 (principal); J12.89 Other viral pneumonia; Z68.42 Body mass index [BMI] 45.0-49.9, adult; R09.02 Hypoxemia; R06.89 Other abnormalities of breathing; R79.89 Other specified abnormal findings of blood chemistry; E66.01 Morbid (severe) obesity due to excess calories; F17.220 Nicotine dependence, chewing tobacco, uncomplicated
CPT/HCPCS: 36415; 71045; 71275; 80048; 80053; 80076; 84145; 84484; 85025; 85027; 85379; 93005; 94640; 99285; 99406; J7030; J7050; Q9967; A4216

== ENCOUNTER → 2021-05-13 | Outpatient (CLI) | payer OTHER, SELFPAY | END | disposition home or self-care (01) | LOC: LABSPEC 05-14 08:29 | PROVIDERS: PCP Family Medicine; Referring Provider Registered Nurse; Visit Provider Registered Nurse | DX: J06.9 Acute upper respiratory infection, unspecified (principal) | CPT/HCPCS: 87635; U0005; U0003 ==

== ENCOUNTER → 2021-05-14 12:04 | Outpatient (CLI) | payer OTHER, SELFPAY ==
--- NOTE | 2021-05-14 12:08 | RAD_ITS ---
EXAM: XR CHEST, 2 VIEWS CLINICAL INDICATION: PNEUMONIA TECHNIQUE: Frontal and lateral views of the chest. This report was created using [employer] report generation technology. COMPARISON: 04/03/2020 FINDINGS: LUNGS AND PLEURAL SPACES: Left lower lobe infiltrate or atelectasis. No pneumothorax. No effusion. HEART: Unremarkable. Cardiac silhouette not enlarged. MEDIASTINUM: Central airways and mediastinal contour are unremarkable. BONES/JOINTS: Unremarkable. SOFT TISSUES: Unremarkable. RAD/Chest PA and Lateral IMPRESSION: Left lower lobe infiltrate or atelectasis. Electronically Signed: Lewis Will MD at 16:53 EST , Service support ,
== END ==
PROVIDERS: PCP Family Medicine; Referring Provider Family Medicine; Visit Provider Family Medicine
DX: J18.9 Pneumonia, unspecified organism (principal)
CPT/HCPCS: 71046

== ENCOUNTER 2021-09-07 22:28 | Outpatient (CLI) | payer OTHER, SELFPAY | END 2021-09-07 23:59 | disposition home or self-care (01) | PROVIDERS: PCP Family Medicine; Visit Provider Nurse Practitioner Acute Care | DX: G47.33 Obstructive sleep apnea (adult) (pediatric) (principal) | CPT/HCPCS: 95811 ==

== ENCOUNTER → 2021-10-16 | Outpatient (CLI) | payer OTHER, SELFPAY | END | disposition home or self-care (01) | LOC: SL 12:48 | PROVIDERS: PCP Family Medicine; Visit Provider Nurse Practitioner Acute Care | DX: Z00.00 Encounter for general adult medical examination without abnormal findings (principal) ==

== ENCOUNTER → 2023-05-04 | Outpatient (CLI) | payer BC, SELFPAY ==
[2023-05-04 08:08] LABS: Bacteria 0 SEEN /hpf (None Seen); Red Blood Cells-Urine 0 SEEN /hpf (0-5)
[2023-05-04 10:47] LABS: Color, Urine Yellow (Yellow); Glucose, Dipstick Normal (Normal); Ketone-Dipstick 5 mg/dl (Negative); Leukocyte Esterase-Dipstick Negative /ul (Negative); Nitrite-Dipstick Negative (Negative); Occult Blood-Urine Negative /ul (Negative); Protein-Dipstick Negative (Negative); Specific Gravity, Urine 1.025 (1.002-1.030); Urine Bilirubin Dipstick Negative (Negative); Urine Clarity Sl. Cloudy (Clear); Urine Urobilinogen Normal (Normal)
[2023-05-04 10:54] LABS: Mucous, Urine 1+ /hpf (<or=2+); Squamous Epithelial Cells - UA 0-5 SEEN /hpf (0-5); White Blood Cells 0-5 SEEN /hpf (0-5)
[2023-05-04 10:59] LABS: Hemoglobin 14.1 g/dL (13.0-16.5); Mean Corp Hgb Conc 30.7 g/dL (32-36); Mean Corpuscular Volume 88.1 fL (80-94); Mean Platelet Vol. 11.1 fl (6.2-12.0); Platelet Count 336 K/mm3 (150-450); RBC Distribution Width CV 14.3 % (11.6-14.6); RBC Distribution Width SD 46.1 fl (35.1-43.9); Red Blood Count 5.22 M/mm3 (4.6-6.2)
[2023-05-04 11:23] LABS: ALB/GLOB Ratio 0.9 RATIO (0.9-2.4); AST(SGOT) 21 U/L (15-37); Alanine Aminotransfer ALT/SGPT 42 U/L (16-61); Albumin, Serum 3.4 g/dL (3.2-5.0); Alkaline Phosphatase 66 U/L (45-117); Anion Gap 4 (5-15); BUN 15 mg/dL (7-18); BUN/Creat Ratio 15.6 RATIO (10-20); Calcium,Total 8.9 mg/dL (8.5-10.1); Chloride 110 mmol/L (98-107); Cholesterol 169 mg/dL (200); Creatinine, Serum 0.96 mg/dL (0.70-1.30); EST Glomerular Filtration Rate 89 mL/min (>60); Est Glom Filt Rate - Afr Amer 108 mL/min (>60); Globulin 3.9 g/dL (2.2-4.2); Glucose 95 mg/dL (74-106); High Density Lipoprotein 39 mg/dL; Potassium 4.2 mmol/L (3.5-5.1); Protein, Total 7.3 g/dL (6.4-8.2); Sodium Level 141 mmol/L (136-145); Triglycerides 149 mg/dL; Very Low Density Lipoprotein 30 mg/dL (5-40)
[2023-05-04 12:15] LABS: Hemoglobin A1c 5.6 % (3.8-5.6); Microalbumin,Random Urine 20.7 mg/L (NO RANGE EST.); Microalbumin:Creatinine Ratio 8.3 mg/g CRE (<30 mg/g CRE)
== END | disposition home or self-care (01) ==
PROVIDERS: PCP Family Medicine; Referring Provider Family Medicine; Visit Provider Family Medicine
DX: R03.0 Elevated blood-pressure reading, without diagnosis of hypertension (principal); E66.9 Obesity, unspecified; R07.9 Chest pain, unspecified; Z13.220 Encounter for screening for lipoid disorders
CPT/HCPCS: 36415; 80053; 80061; 81001; 82043; 82570; 83036; 85027

== ENCOUNTER 2023-07-21 01:49 | Emergency (ER) | payer BC, SELFPAY ==
[2023-07-21 01:52] VITALS: BP 184/102; PULSE 92; RESP 18; TEMP 36.6; O2SAT 100; BMI 48.5
[2023-07-21 01:56] VITALS: BP 184/102; PULSE 92; RESP 18; TEMP 36.6; O2SAT 100
--- NOTE | 2023-07-21 02:17 | RAD_ITS ---
INDICATION: chest pain EXAMINATION/TECHNIQUE: X-RAY - XR Chest 2 Views COMPARISON: 11/16/2021 FINDINGS: LINES/DEVICES: None. LUNGS: No consolidation or evidence of an effusion. No evidence of edema or a pneumothorax. MEDIASTINUM AND CARDIOVASCULAR STRUCTURES: Cardiac silhouette is normal in size and contour. Mediastinum is unremarkable. BONES AND SOFT TISSUES: No acute abnormality. RAD/Chest PA and Lateral IMPRESSION: No evidence of cardiopulmonary disease. Electronically Signed: Dinesh Guardado DO at 3:33 EST ,
--- OUTSIDE RECORDS SUMMARY | 2023-07-21 02:18 | XMS RPT_ITS | CCD ---
Author Name Unknown Address [address] [place] [address] Organization [facility] Problems Active Problems Problem Classification Problem Date Documented Da te Episodic/Chronic Unclassified (1 source) Unknown / UNK(Unknown) Onset: 03-09-2017 Past or Other Problems Problem Classification Problem Date Documented Da te Episodic/Chronic Unclassified (1 source) HEAD/NECK PAIN/INJURY/TRIA GE Onset: 03-09-2017 Results Test Name Value Interpretation Reference Range Facil ity Encounters Encounter Date Encounter Type Care Provider Facility Start: 03-09-2017 Emergency department patient visit Facility:[facility] Payers Date Payer Category Payer Policy ID Unknown [id number] Summary Purpose Family History No Family History Records Found Advance Directives No Advanced Directives Records Found Additional Source Comments (unrecognized sect ion and content) No Status Records Found INFORMATION SOURCE (unrecogn ized section and content) FOR RECORDS PERTAINING TO PATIENTS WHO ARE OR HAVE BEEN ENROLLED IN A CHEMICAL DEPENDENCY/SUBSTANCEABUSE PROGRAM, SOME INFORMATION MAY BE OMITTED. This clinical summary was aggregated from multiple sources. Caution should be exercised in using it in the provision of clinical care. This summary normalizes information from multiple sources, and as a consequence, information in this document may materially change the coding, format and clinical context of patient data. In addition, data may be omitted in some cases. CLINICAL DECISIONS SHOULD BE BASED ON THE PRIMARY CLINICAL RECORDS. [employer] provides no warranty or guarantee of the accuracy or completeness of information in this document.
[2023-07-21 02:26] LABS: Absolute Neutrophil Count 7.4 X10^3/uL (2.0-7.7); Basophil# 0.08 X10^3/uL; Basophil% 0.7 % (0-1); Eosinophil# 0.29 X10^3/uL; Eosinophils% 2.5 % (0-5); Hematocrit 44.4 % (40-54); Hemoglobin 13.8 g/dL (13.0-16.5); Lymphocyte % 26.4 % (19-41); Mean Corp Hgb Conc 31.1 g/dL (32-36); Mean Corpuscular Volume 86.9 fL (80-94); Mean Platelet Vol. 10.3 fl (6.2-12.0); Monocyte# 0.83 X10^3/uL; Monocyte% 7.1 % (0-10); NRBC Flagged by Analyzer 0 % (0-5); Neutrophil # 7.38 X10^3/uL (2.7-7.7); Neutrophil % 62.8 % (47-70); Platelet Count 330 K/mm3 (150-450); RBC Distribution Width CV 13.9 % (11.6-14.6); RBC Distribution Width SD 44.7 fl (35.1-43.9); Red Blood Count 5.11 M/mm3 (4.6-6.2); White Blood Count 11.7 K/mm3 (4.4-11.0)
[2023-07-21 02:45] LABS: D-Dimer Quantitative (DVT/PE) 0.36 FEU/ug/m (0.27-0.49)
[2023-07-21 02:51] LABS: Anion Gap 4 (5-15); BUN 17 mg/dL (7-18); BUN/Creat Ratio 20.4 RATIO (10-20); Chloride 112 mmol/L (98-107); Creatinine, Serum 0.83 mg/dL (0.70-1.30); EST Glomerular Filtration Rate 105 mL/min (>60); Est Glom Filt Rate - Afr Amer 127 mL/min (>60); Estimated Creatinine Clearance 158.83 ml/min; Glucose 120 mg/dL (74-106); Magnesium 2.4 mg/dL (1.6-2.6); Potassium 3.8 mmol/L (3.5-5.1); Sodium Level 141 mmol/L (136-145); Troponin-I HS 4 pg/mL (3.0-78.0)
--- NOTE | 2023-07-21 03:17 | EKG12_ITS ---
Test Reason : CP Blood Pressure : / mmHG Vent. Rate : 091 BPM Atrial Rate : 091 BPM P-R Int : 150 ms QRS Dur : 102 ms QT Int : 374 ms P-R-T Axes : 058 041 047 degrees QTc Int : 460 ms Normal sinus rhythm Normal ECG Confirmed by WALT DE LA TORRE, NIKOLAY ([id number]), editorial clerk SANNA SPAULDING ([id number]) on 07/22/2023 10:37:27 AM Referred By: Confirmed By:NIKOLAY GODOY MD
[2023-07-21 03:50] VITALS: BP 174/114
[2023-07-21 04:32] LABS: Troponin-I HS 5 pg/mL (3.0-78.0)
--- NOTE | 2023-07-21 04:49 | EX.ED.DYSGE1 ---
HPI History of Present Illness Chief Complaint: Chest Pain Informant: patient Narrative Narrative: Patient is a 48-year-old male with past medical history of obstructive sleep apnea and nicotine use. He states he noticed some vague left-sided lower chest discomfort around 9 PM last night. He states that there is no associated nausea vomiting diaphoresis or shortness of breath with this. He reports he was able to fall asleep but then awoke from sleep with increased left-sided chest pain. He states when this came on he also had painful inspiration. He denies any recent travel surgery or history of DVT/PE. He states that his mother and father both had heart attacks at roughly age 50. He states that although he had mild shortness of breath with the worsening pain in the middle of the night/supervisor frame sample and pattern there is no associated nausea vomiting or diaphoresis. However as he had concerned this could be potential cardiac in nature he comes in for evaluation. Of note the patient does state that upon arrival to the ER the pain has spontaneously improved [facility] Medical History Chest pain Chronic neck and back pain Knee pain Home Medications albuterol sulfate 90 mcg/actuation breath activated powder inhaler (ProAir RespiClick) 2 inh inhalation Q4H PRN shortness of breath 08/19/21 [History Last Taken Unknown] bupropion HCl 300 mg 24 hr tablet, extended release 300 mg PO DAILY 11/12/21 [History Last Taken Unknown] Allergy/AdvReac Type Severity Reaction Status Date / Time No Known Allergies Allergy Verified 07/21/23 01:51 Surgical History History of shoulder surgery History of skin graft Social History Smoking Status: Former smoker Smokeless tobacco user: snuff alcohol intake: current ROS ROS ED Constitutional Constitutional ED: Denies chills or fever(s) Eyes Eyes: Denies change in vision ENT ENT ED: Denies sore throat Cardiovascular Cardiovascular: Reports chest pain; Denies palpitations or racing heartbeat Respiratory/Chest Respiratory/Chest: Reports dyspnea; Denies cough Gastrointestinal Gastrointestinal: Denies abdominal pain, diarrhea, nausea or vomiting Genitourinary Genitourinary ED: Denies dysuria Musculoskeletal Musculoskeletal: Denies back pain or myalgias Integumentary Denies rash Neurologic Neurologic: Denies headache(s) Hematologic/Lymphatic Hematologic/Lymphatic: Denies easy bleeding or easy bruising EXAM Physical Exam Const Vital Signs: 07/21/23 01:52 07/21/23 01:56 07/21/23 03:50 Temperature 97.9 F 97.9 F Temperature Source Oral Oral Pulse Rate 92 92 Respiratory Rate 18 18 Blood Pressure 184/102 H 184/102 H 174/114 H Blood Pressure Mean 129 129 134 Pulse Ox 100 100 Oxygen Delivery Method Room Air Room Air Positive well nourished, well developed and obese General Appearance ED: well developed; Negative for pallor Nutritional Appearance: obese HEENT HEENT Narrative: Normocephalic atraumatic Eyes PERRL and EOMs intact bilaterally General Eye ED: Negative for scleral icterus Neck supple and no JVD Neck Narrative: No carotid bruit noted Chest Wall Chest Narrative: There is mild reproducible left anterior chest wall pain with palpation without bony deformity or crepitance Resp normal respiratory effort and clear to auscultation bilaterally Cardio regular rate and regular rhythm Rate: other Other Details: Radial and carotid pulses are equal and symmetric Heart is regular rate and rhythm without murmurs rubs or gallops GI normal to inspection, nondistended, normoactive bowel sounds, non-tender, non-distended and no masses GI Narrative: No voluntary guarding or rigidity or pulsatile mass or fluid wave noted. Auscultation: normoactive bowel sounds Palpation: soft Extremity normal to inspection Extremity Narrative: No asymmetric edema no pitting edema negative Homans' sign bilaterally Neuro oriented x3, CN's II-XII intact bilaterally and no sensory deficits noted Sensorium / Orientation: alert Motor Exam: strength 5/5 throughout Psych mental status grossly normal Skin no rashes or lesions noted General Skin Exam: Negative for jaundice or pallor MDM MDM MDM Narrative Medical decision making narrative: Patient arrived to the ER hypertensive otherwise with stable vitals. He reported left anterior chest wall pain but no associated nausea vomiting or diaphoresis. However he does have a strong family history of cardiovascular disease and therefore it was like to perform a basic cardiac workup especially with his hypertension and no reported history of this. Differential diagnosis is for acute coronary syndrome versus musculoskeletal chest wall pain versus pneumonia versus pulmonary embolus versus dissection. patient's EKG showed normal sinus rhythm without acute STEMI or ischemic changes. D-dimer was negative going against PE or dissection. Chest x-ray revealed no acute lung pathology such as pneumonia or pneumothorax. Patient's troponin was 4 and 5 going against acute coronary syndrome. On reevaluation he is resting comfortably and has had improvement of his symptoms. Therefore at this time based on his negative workup and spontaneous improvement of symptoms I do not feel there is need for admission and he is otherwise safe for discharge History & Record Review Discussion w/independent historian: Patient Lab Data Attestation: I reviewed the patient's lab results. Labs: Laboratory Results - last 24 hr 07/21/23 07/21/23 07/21/23 02:10 04:00 23:10 WBC 11.7 H RBC 5.11 Hgb 13.8 Hct 44.4 MCV 86.9 MCH 27.0 MCHC 31.1 L RDW Std Deviation 44.7 H RDW Coeff of Jaiden 13.9 Plt Count 330 MPV 10.3 Immature Gran % (Auto) 0.500 Neut % (Auto) 62.8 Lymph % (Auto) 26.4 [place] % (Auto) 7.1 Eos % (Auto) 2.5 Baso % (Auto) 0.7 Absolute Neuts (auto) 7.4 Absolute Lymphs (auto) 3.10 Nucleated RBC % 0 D-Dimer Quant (PE/DVT) 0.36 Sodium 141 Potassium 3.8 Chloride 112 H Carbon Dioxide 25.0 Anion Gap 4 L BUN 17 Creatinine 0.83 Estim Creat Clear Calc 158.83 Est GFR (MDRD) Af Amer 127 Est GFR (MDRD) Non-Af 105 BUN/Creatinine Ratio 20.4 H Glucose 120 H Calcium 9.0 Magnesium 2.4 Troponin I High Sens 4 5 Radiography Diagnostic Testing: Clinical Impression(s) from Imaging Studies Chest X-Ray 07/21/23 02:17 IMPRESSION: No evidence of cardiopulmonary disease. Electronically Signed: Dinesh Guardado DO at 3:33 EST , Chest x-ray as interpreted by the emergency medicine physician reveals no acute infiltrate pneumothorax pleural effusion or widening of the mediastinum Discharge Plan Triage Chief Complaint: Chest Pain ED Provider: Harish Martinez Dx/Rx/DC Orders Clinical Impression: Nonspecific chest pain, CHRISTEN (obstructive sleep apnea), Hypertension Instructions: ED Chest Pain, Uncertain Cause Prescriptions: No Action ProAir RespiClick 90 mcg/actuation aerosol powdr breath activated 2 inh inhalation Q4H PRN (Reason: shortness of breath) bupropion HCl 300 mg tablet extended release 24 hr 300 mg PO DAILY Patient Comments: take 1 tablet by mouth once daily Stand Alone Forms: Work / School Excuse Primary Care Provider: Zac Byrd Referrals: Zac Byrd MD [Primary Care Provider] - Activity Restrictions/Additional Instructions: Your workup did not show any obvious signs of heart attack or abnormal heart rhythm and your blood test for potential blood clot or aortic dissection was normal going against this. Because you have a strong family history of heart disease please schedule your outpatient stress test as directed by your family doctor and return to the ER should you have any further concerns Disposition Disposition: Home, Self Care
[2023-07-21 04:56] VITALS: BP 163/94; PULSE 88; RESP 18; TEMP 36.7; O2SAT 99
== END 2023-07-21 04:58 | disposition home or self-care (01) ==
PROVIDERS: Emergency Provider Emergency Medicine; PCP Family Medicine; Visit Provider Emergency Medicine
DX: R07.9 Chest pain, unspecified (principal); R06.02 Shortness of breath; I10 Essential (primary) hypertension; G47.33 Obstructive sleep apnea (adult) (pediatric); Z87.891 Personal history of nicotine dependence
CPT/HCPCS: 71046; 80048; 83735; 84484; 85025; 85379; 93005; 99283; A4216

== ENCOUNTER → 2023-08-25 | Outpatient (CLI) | payer BC, SELFPAY ==
--- NOTE | 2023-08-25 12:24 | STRESSREP ---
Stress Test Report Exercise perfusion stress test. 48-year-old male with a history of chest pain Stress protocol: Resting EKG demonstrates normal sinus rhythm with a rate of 81 bpm resting blood pressure is 138/90 mmHg. The patient exercised according to the regular Jonathan protocol for a total duration of 7 minutes attaining a maximum heart rate of 162 bpm which was 93% of maximum predicted heart rate; the maximum workload was 10.1 metabolic equivalents. At rest there were no ST or T wave changes noted to suggest ischemia and at peak exercise upsloping ST changes only were noted which did not meet the criteria for ischemia. No clinical angina was noted the test was terminated due to the target heart rate being achieved/fatigue. The peak blood pressure was 178/84 mmHg. Rate-pressure product was 26,000. Conclusion: Normal exercise stress test at a high workload No angina present.
== END | disposition home or self-care (01) ==
LOC: CVS 10:53
PROVIDERS: PCP Family Medicine; Referring Provider Family Medicine; Visit Provider Family Medicine
DX: R07.9 Chest pain, unspecified (principal)
CPT/HCPCS: 93017

== ENCOUNTER → 2024-02-15 | Outpatient (CLI) | payer BC, SELFPAY ==
--- NOTE | 2024-02-15 12:45 | RAD_ITS ---
STUDY: X-RAY CHEST REASON FOR EXAM: Male, 48 years old. Wheezing and shortness of breath. TECHNIQUE: PA and lateral views of the chest. COMPARISON: Comparison is made with prior study dated April 20, 2024. FINDINGS: Focal infiltrate in the posterior medial segment of the left lower lobe.. There is no demonstrated pleural abnormality. Normal size heart. Normal mediastinum and art. Normal visualized pulmonary arteries. Normal visualized aortic arch and descending thoracic aorta. There are mild degenerative changes of the visualized thoracic spine. Normal visualized ribs, clavicles, and shoulders. There is no demonstrated abnormality of the visualized soft tissue structures of the upper abdomen. RAD/Chest PA and Lateral IMPRESSION: Focal infiltrate in the posterior medial segment of the left lower lobe. Electronically Signed: Scot Santiago MD at 13:40 EDT ,
== END | disposition home or self-care (01) ==
LOC: MTRAD 12:45
PROVIDERS: PCP Family Medicine; Referring Provider Family Medicine; Visit Provider Family Medicine
DX: R06.2 Wheezing (principal)
CPT/HCPCS: 71046

== ENCOUNTER 2024-04-02 05:49 | Day surgery (SDC) | payer BC, SELFPAY ==
[2024-04-02] VITALS (9 sets, daily range): BP systolic 116–145; BP diastolic 88–98; PULSE 78–103; RESP 16–20; TEMP 36.5–37.1; O2SAT 92–98; BMI 46.8
--- NOTE | 2024-04-02 06:48 | PCM.PRE.AN2 ---
ASA Classification* ASA Classification ASA Classification: 3 Assessment & Plan Anesthesia* Anesthesia Assessment Anesthesia Assessment: Discussed sedation and/or anesthesia options, risks, benefits, and alternatives with patient/parents/legal guardian/POA. Questions invited. The patient/parents/legal guardian/POA seems to understand and agrees to proceed with anesthesia plan. Reviewed the physical assessment, medical history, allergy history and patient home medications list prior to surgery/procedure/anesthetic and documented any changes. Performed airway and anesthesia risk assessments. Anesthesia Type Anesthesia Type: General Anesthesia Focused Assessment* Airway Assessment Mouth opens: >3 cm Mallampati Score: II Focused Labs Anesthesia Preop lab: CBC WBC 11.7 K/mm3 (4.4-11.0) H 07/21/23 02:10 RBC 5.11 M/mm3 (4.6-6.2) 07/21/23 02:10 Hgb 13.8 g/dL (13.0-16.5) 07/21/23 02:10 Hct 44.4 % (40-54) 07/21/23 02:10 Plt Count 330 K/mm3 (150-450) 07/21/23 02:10 CHEMISTRY Potassium 3.8 mmol/L (3.5-5.1) 07/21/23 02:10 Sodium 141 mmol/L (136-145) 07/21/23 02:10 Magnesium 2.4 mg/dL (1.6-2.6) 07/21/23 02:10 BUN 17 mg/dL (7-18) 07/21/23 02:10 Creatinine 0.83 mg/dL (0.70-1.30) 07/21/23 02:10 Glucose 120 mg/dL (74-106) H 07/21/23 02:10 TSH 2.56 uIU/mL (0.358-3.74) 06/25/14 16:43 COAG Pre-Assessment Diagnosis/Proposed Procedure Planned Operative Procedure(s): Hernia, Robotic Umbilical Repair w/ Mesh Anesthesia History 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 When Was Last Pacemaker Check QUESTION #4 FULL TEXT: You/Your Family Experience fever (hyperthermia) with Anesthesia Last Oral Intake Last Oral intake: Last Oral Intake NPO since Meds taken in AM with sips of water? Meds patient instructed to take am of surgery PONV PONV - automotive service writer: PONV - automotive service writer Female No 03/20/24 13:14 HX of Motion Sickness No 03/20/24 13:14 HX of N/V After Surgery No 03/20/24 13:14 Non-Smoker No 03/20/24 13:14 Duration of Surgery greater Yes 03/20/24 13:14 than 60 minutes Number of Risk Factors 1 03/20/24 13:14 PONV Score Low Risk 03/20/24 13:14 Height & Weight Height & Weight: Anesthesia: Height & Weight Height 5 ft 9 in 03/30/24 08:01 Weight: 143.335 kg 03/30/24 08:01 Respiratory Assessment Respiratory Assessment - automotive service writer: Respiratory Tract Infection Hx - automotive service writer Hx Respiratory Tract Infection No 03/20/24 13:14 STOP Sleep Apnea STOP Sleep Apnea - automotive service writer: STOP Sleep Apnea - automotive service writer Hx Hypertension No 03/20/24 13:14 Hx Sleep Apnea No 03/20/24 13:14 CPAP BIPAP Do you snore loudly (louder No 03/20/24 13:14 than talking or can be heard Do you often feel tired/ No 03/20/24 13:14 fatigued/ sleepy during daytime? Has anyone observed you stop No 03/20/24 13:14 breathing during sleep? STOP Results Negative 03/20/24 13:14 QUESTION #5 FULL TEXT : Do you snore loudly (louder than talking or can be heard through closed doors)? Tobacco Use History Tobacco Use History - automotive service writer: Tobacco Use History - automotive service writer Tobacco Use Smoking Status Current every day smoker 03/20/24 13:14 Hx Tobacco Use Yes 03/20/24 13:14 Years Smoking Packs Smoked per Day Smoking Cessation Date was within the last 15 years Hx Smoking Cessation Date 12/01/08 03/20/24 13:14 Hx Smoking Cessation Counseling Hematologic Medial History Hematologic Hx - automotive service writer: Hematologic Medical Hx - reprographics associate Hx of Blood Transfusion No 03/20/24 13:14 Hx of Transfusion in last 3 No 03/20/24 13:14 Months Date of Last Transfusion (if within last 3 months) Ever experience any problems No 03/20/24 13:14 with transfusion(s)? Specify any problems Hx of Preganancy in last 3 N/A 03/20/24 13:14 Months Nurse Filling Out Transfusion VCHRISTIN 03/20/24 13:14 & Questions: Date: 03/20/24 03/20/24 13:14 Time: 13:15 03/20/24 13:14 Patient unable to answer at this time (ie. confused, unrespo /Reproduction History /Reproductive History - automotive service writer: /Reproductive Hx- automotive service writer Hx Now Gestational Age (in weeks): EDC: Hx Hx Para Hx Section SAB Active Medications Active Medications: Current Medications Generic Name Dose Route Start Last Admin Trade Name Freq PRN Reason Stop Dose Admin Cefazolin Sodium 3 gm/ N/A 30 mls @ 600 mls/hr 04/02/24 07:30 IV 04/02/24 07:32 PREOP ONE Lactated Ringer's 1,000 mls @ 15 mls/hr 04/02/24 06:15 IV 04/07/24 19:34 .Q48H [facility] Protocol PFSH Medical History Wears glasses Depression Alcohol use History of steroid therapy Back pain Chewing tobacco dependence CPAP (continuous positive airway pressure) dependence Sleep apnea History of stress test Umbilical hernia Anxiety Back problem Obesity Cellulitis of right lower leg Abrasion, right lower leg, initial encounter Chronic neck and back pain Knee pain Chest pain Home Medications ?Medication ?Instructions ?Recorded ?Last Taken ?Type albuterol sulfate 90 mcg/actuation 2 inh inhalation Q4H PRN shortness 08/19/21 Unknown History breath activated powder inhaler of breath (ProAir RespiClick) bupropion HCl 300 mg 24 hr tablet, 300 mg PO DAILY 11/12/21 04/01/24 History extended release aluminum chloride 20 % topical 1 applic topical BID PRN excessive 03/12/24 Unknown History solution (Drysol) sweating Allergy/AdvReac Type Severity Reaction Status Date / Time sertraline Allergy Intermediate Upset Verified 03/20/24 13:05 Stomach Family History Uncle Cancer Stomach cancer Mother Heart disease CVA (cerebral vascular accident) Grandfather Heart disease Father Hypertension Surgical History Hx of surgical procedure History of repair of right rotator cuff History of shoulder surgery History of skin graft Social History Smoking Status: Current every day smoker tobacco type: smokeless tobacco Smokeless tobacco user: snuff alcohol intake: current substance use type: does not use Review of Systems (Anesthesia) ROS Narrative System reviewed and no additional complaints, except as documented.
[2024-04-02] MEDS: Lactated Ringers 1,000 ML 15 ML IV (06:49)
--- NOTE | 2024-04-02 06:55 | PCM.HP.STD ---
HPI - General General Date of Admission: 04/02/24 Date of Service: 04/02/24 Chief Complaint: umbilical hernia [facility] Narrative KEVIN MERRILL, is a 48 M who presents for repair of umbilical hernia . [facility] Medical History (Updated 04/02/24 @ 06:[address] Ru Trent MD) Umbilical hernia Wears glasses Depression Alcohol use History of steroid therapy Back pain Chewing tobacco dependence CPAP (continuous positive airway pressure) dependence Sleep apnea History of stress test Umbilical hernia Anxiety Back problem Obesity Cellulitis of right lower leg Abrasion, right lower leg, initial encounter Chronic neck and back pain Knee pain Chest pain Home Medications ?Medication ?Instructions ?Recorded ?Last Taken ?Type albuterol sulfate 90 mcg/actuation 2 inh inhalation Q4H PRN shortness 08/19/21 Unknown History breath activated powder inhaler of breath (ProAir RespiClick) bupropion HCl 300 mg 24 hr tablet, 300 mg PO DAILY 11/12/21 04/01/24 History extended release aluminum chloride 20 % topical 1 applic topical BID PRN excessive 03/12/24 Unknown History solution (Drysol) sweating Allergy/AdvReac Type Severity Reaction Status Date / Time sertraline Allergy Intermediate Upset Verified 03/20/24 13:05 Stomach Family History Uncle Cancer Stomach cancer Mother Heart disease CVA (cerebral vascular accident) Grandfather Heart disease Father Hypertension Surgical History Hx of surgical procedure History of repair of right rotator cuff History of shoulder surgery History of skin graft Social History Smoking Status: Current every day smoker tobacco type: smokeless tobacco Smokeless tobacco user: snuff alcohol intake: current substance use type: does not use ROS Constitutional Constitutional: Reports systems reviewed and no addt'l complaints, except as documented Eyes Eyes: Reports systems reviewed and no addt'l complaints, except as documented ENT HEENT: Reports systems reviewed and no addt'l complaints, except as documented Cardiovascular Cardiovascular: Reports systems reviewed and no addt'l complaints, except as documented Respiratory/Chest Respiratory/Chest: Reports systems reviewed and no addt'l complaints, except as documented Gastrointestinal Gastrointestinal: Reports systems reviewed and no addt'l complaints, except as documented Vital Signs Vital Signs Vital Signs: 04/02/24 06:45 04/02/24 06:47 Temperature 98.8 F Temperature Source Temporal Pulse Rate 78 Respiratory Rate 16 Respiratory Pattern Normal Blood Pressure 116/88 H Blood Pressure Mean 97 Blood Pressure Source Monitor Blood Pressure Position Semi-Fowlers Blood Pressure Location Right Arm Pulse Ox 96 Oxygen Delivery Method Room Air Weight Weight: 317 lb 7.45 oz Body Mass Index (BMI) 46.8 Physical Exam Const alert and oriented x3 HEENT normocephalic Eyes PERRL Neck full ROM Chest Chest: symmetrical chest wall rise GI GI Narrative: umbilical hernia present and unchanged Assessment & Plan Assessment/Plan (1) Umbilical hernia: PLAN: Plan robotic repair of umbilical hernia
[2024-04-02] MEDS: Cefazolin 3 GM in Syringe 1 EACH IV (07:40)
[2024-04-02] MEDS: Gentamicin 80 MG/2 ML Vial (09:58)
[2024-04-02] MEDS: Bupiv/Epi 0.25% 30 ML Vial (10:23)
--- NOTE | 2024-04-02 10:41 | PCM.POST.ANE ---
Anesthesia: Postop Eval I Current Vital Signs Temperature: 988 F Pulse Rate: 103 Blood Pressure: 125/98 Respiratory Rate: 20 Pulse Ox: 98 Oxygen Delivery Method: Nasal Cannula Oxygen Flow Rate (L/min): 6 (Part of the ERAS protocol.) Assessment Airway patent: Yes Spontaneous unlabored respirations: Yes Mental status: Awake and Calm nausea: No Vomiting: No Anesthesia Complication: No Fluid Hydration Crystalloid volume administer (ml): 1,000 Total IV fluid infused: 1,000 Progress Note Anesthesia document: Postop Eval 1 completed: Yes
--- NOTE | 2024-04-02 10:54 | DCINST_ITS ---
Discharge Instructions Diet Discharge Diet: Light diet - advance as tolerated Activity Discharge Activity: May Shower Lifting Restrictions: No lifting over 20 pounds for 6 weeks Additional Activity Instructions:: Wear abdominal binder for comfort is much as possible Dressing / Incision Call your doctor if your incision/area has: Continuous Slow Oozing, Sudden Increased Bleeding, Increased Pain/ Swelling, Increased Redness, Foul Smelling Discharge and Swelling at the incision site Call your doctor if you observe: Fever of 101 or Higher and Change in Color Cleanse incision/area with: Soap & Water Follow Up Care Please Follow Up With: Ru Trent MD When: 2 weeks Test Results: Test results from this visit will be discussed in further detail at your follow- up appointment, if applicable. Discharge Plan Admission Primary Reason for Your Visit: Umbilical hernia repair surgery Attending Provider: Ru Trent Primary Care Provider: Leonardo Byrd Instructions Print Language: [place] Citizen Discharge Orders/Prescriptions Prescriptions: New oxycodone-acetaminophen [Percocet] 5-325 mg tablet 1 tab PO Q8H PRN (Reason: pain) 3 Days Qty: 10 0RF Continued ProAir RespiClick 90 mcg/actuation aerosol powdr breath activated 2 inh inhalation Q4H PRN (Reason: shortness of breath) bupropion HCl 300 mg tablet extended release 24 hr 300 mg PO DAILY Patient Comments: take 1 tablet by mouth once daily Drysol 20 % solution 1 applic topical BID PRN (Reason: excessive sweating) Rx Instructions: To Feet Referrals / Follow Up: Leonardo Byrd MD [Primary Care Provider] - Disposition Disposition (needs filled in before D/C Order can be placed): Home, Self Care
--- NOTE | 2024-04-02 10:57 | PCM.OPRPT ---
Problems Associated Problem List Diagnoses (1) Umbilical hernia: Operative Report (Standard) Operative Information Surgery/Procedure Performed: Robotic umbilical hernia repair with mesh Surgeon: Ru Trent Date of Procedure: 04/02/24 Procedure Start Time: : Procedure Stop Time: :24 Pre-Operative Diagnosis: Umbilical hernia Post-Operative Diagnosis: Umbilical hernia Select all DRAINS/GRAFTS/IMPLANTS that apply: None Type of Anesthesia: General Estimated Blood Loss: 10 mL Specimen collected: No Description of surgery: The patient is a 48-year-old male who recently presented to my office with an umbilical hernia. Due to the size of the hernia, I felt that mesh would most likely be required. I recommended that this be performed robotically. We discussed the details of the planned procedure including the risks benefits and alternatives. He wished to proceed. The patient was brought to the operating room today following informed consent. Preoperative antibiotics were given and a timeout was performed. He was placed supine on the operative table with arms outstretched on arm boards. General anesthesia was induced. Once adequately sedated his arms were comfortably tucked at his sides. The abdomen was clipped prepped and draped in the usual sterile manner. A 5 mm incision was made in the left upper quadrant and a 5 mm trocar was placed optically. This was placed without incident. Next three 8 mm trocars were placed under direct visualization laterally along the left side of the abdomen. Patient was placed in a slight headdown position with some roll to the right. The hernia defect was visualized laparoscopically. The robot was then docked to the patient. Next the peritoneal flap was created using scissors and electrocautery this was developed laterally towards the hernia. At the level of the hernia the hernia defect and contents and sac were reduced. And the flap was extended on the other side of midline. The fascial defect which was about 3 cm was closed using a running strata fix suture. This closed the defect nicely. Next a roughly 13 x 13 cm piece of mesh was inserted. This was laid in good positioning. The mesh covered over the fascial defect nicely. The peritoneum was then closed again using a running V-Loc suture. This closed the peritoneum nicely. The trocars were opened up and insufflation was allowed to escape. Incisions were injected with additional local anesthetic and then closed with 5-0 Vicryl. Skin glue was applied as dressing. He was awakened from anesthesia and taken the PACU in good condition Surgical Findings: Please see operative note description Supervisor Patching sharemilker: Yes Service Delivery Supervisor: Arti Sarabia Tasks completed by assistant accounting manager: Closing Additional administrative office assistant?: No Complications Complications: No Admit VTE Documentation VTE Present on Admission: No VTE Mechan Device Prophylaxis: SCD's VTE Pharm Prophylaxis ordered?: No Reason prophylaxis not ordered: Treatment Not Indicated Procedures Digestive [id number]: [id number] RPR AA HRN 1ST 3-[address]
[2024-04-02] MEDS: Acetaminophen 325 MG Tablet PO (11:49)
[2024-04-02] MEDS: oxyCODONE 5 MG Tablet PO (11:49)
--- NOTE | 2024-04-02 13:18 | PCM.POSTANE2 ---
Anesthesia Postop Eval I Sum Anesthesia Postop Eval I Summary Anesthesia Postop Eval I Summary: Anesthesia Postop Eval I: Assessment Summary Airway patent Spontaneous unlabored respirations Mental status nausea Vomiting Anesthesia Postop Eval I: Fluid Summary Crystalloid volume administer (ml) Colloids volume administered ( ml) Blood Product volume administered (ml) Total IV fluid infused Anesthesia Postop Eval I: Summary Notes Anesthesia Complication Anesthesia Complication Comment: Post-operative progress note Anesthesia: Postop Eval II Evaluation Mental status: Awake and Calm Pain Level: 1 nausea: No Vomiting: No Complications Anesthesia Complication: No
== END 2024-04-02 13:44 | disposition home or self-care (01) ==
LOC: SDC 05:50 → AC 05:53
PROVIDERS: PCP Family Medicine; Referring Provider Surgery; Visit Provider Surgery
PROC: (CPT 49593; principal; 2024-04-02 07:10)
DX: K42.9 Umbilical hernia without obstruction or gangrene (principal); Z68.42 Body mass index [BMI] 45.0-49.9, adult; F17.220 Nicotine dependence, chewing tobacco, uncomplicated; Z79.899 Other long term (current) drug therapy; E66.9 Obesity, unspecified; F41.9 Anxiety disorder, unspecified
CPT/HCPCS: 49593; S2900; 00840; J7120; A4216; J2405